=== PATIENT | male | born 1965 | race African-American/Black ===

== ENCOUNTER 2018-04-28 09:54 | Outpatient (CLI) | payer BC | END 2018-04-28 09:55 | disposition home or self-care (01) | LOC: BICRAD 09:54 | PROVIDERS: ATTEND Internal Medicine Medical Oncology | DX: D47.2 Monoclonal gammopathy (principal); I70.0 Atherosclerosis of aorta | CPT/HCPCS: 71046 ==

== ENCOUNTER 2018-05-11 16:24 | Inpatient (IN) | payer BC ==
[~2018-05-11 16:24] MED LIST: ISOVUE-370 76%-LOCM 1 ML ONE
[2018-05-11 16:59] LABS: Bilirubin Small (Negative); Blood, Urine Large (Negative); Clarity CLOUDY (Clear); Glucose, Urine (Dipstick) Negative (Negative); Leukocyte Trace (Negative); Nitrite Negative (Negative); Protein, Urine (Dipstick) 100 mg/dL (Neg-Trace); Specific Gravity, Urine 1.014 (1.002-1.036)
[2018-05-11 17:02] LABS: Pathc Cast-AUWi Flag 11.33 (0-2.49); Yeast-AUWi Flag 73.9 (0-25.0)
--- NOTE | 2018-05-11 17:07 | RAD ---
PORTABLE UPRIGHT FRONTAL CHEST RADIOGRAPH; 05/11/18 COMPARISON: None. HISTORY: Abdominal pain and flank pain with diarrhea. FINDINGS: There is no pneumothorax. There is focal opacity within the right lung base with partial obscuration of the right hemidiaphragm and the right heart border which suggests nonspecific right basilar consol idation/collapse. Small right pleural effusion suspected. Left lung appears clear. No left pleural fl uid. IMPRESSION: Focal opacity noted in the right lung base suggests a combination of nonspecific pleural and parenchy mal opacity. Findings may be related to infectious pneumonitis or aspiration. Followup to resolution advised. POS: [facility]
[2018-05-11 17:10] LABS: Bacteria/HPF Rare-Few HPF (None Seen)
[2018-05-11 17:11] LABS: Other Casts/LPF 4-6 COARSE GRAN LPF (0-3 Hyaline)
[2018-05-11 17:30] LABS: Hemoglobin 11.8 g/dL (14.0-18.0); Mean Corpuscular HGB CONC 32.8 g/dL (32.0-36.0); Mean Corpuscular Hemoglobin 31.1 pg (27.0-31.0); Mean Corpuscular Volume 95.1 fL (78.0-98.0); Platelet Count 109 thou/uL (130-400); Red Blood Cell (RBC) Count 3.78 mill/uL (4.70-6.10); White Blood Cell (WBC) Count 4.7 thou/uL (4.8-10.8)
[2018-05-11 17:46] LABS: Band 27 % (5-11); Dohle Bodies SLIGHT; Lymphocytes 10 % (21-51); MDiff Complete? YES; Metamyelocyte 1 % (0-0); Monocytes 1 % (0-10); Neutrophil 61 % (42-75); PLT Morphology Comment Appears Decreased; Polychromasia SLIGHT = 2-3 cells (100X) (0-2/hpf); Vacuoles SLIGHT
[2018-05-11 17:52] LABS: Troponin I Less than 0.010 ng/mL (< 0.028)
[2018-05-11 17:56] LABS: ALT (SGPT) 30 U/L (8-55); AST (SGOT) 87 U/L (5-34); Albumin 2.8 g/dL (3.5-5.0); Alkaline Phosphatase 47 U/L (40-150); Anion Gap 12 mmol/L (10-20); BUN (Urea Nitrogen) 35 mg/dL (8.4-25.7); Bilirubin, Total 2.2 mg/dL (0.2-1.2); Calc. Creatinine Clearance 0 mL/min (70-130); Calcium 7.6 mg/dL (7.8-10.44); Carbon Dioxide 14 mmol/L (22-29); Chloride 110 mmol/L (98-107); Estimated GFR-MDRD 50; Globulin 5.8 g/dL (2.4-3.5); Glucose 87 mg/dL (70-105); Potassium 3.9 mmol/L (3.5-5.1); Protein, Total 8.6 g/dL (6.0-8.3); Sodium 132 mmol/L (136-145)
[2018-05-11 18:05] LABS: CKMB 7.6 ng/mL (0-6.6)
--- NOTE | 2018-05-11 19:38 | ULT ---
ULTRASOUND ABDOMEN LIMITED: (RIGHT UPPER QUADRANT) 05/11/18 HISTORY: Right upper quadrant abdominal pain. FINDINGS: Gallbladder: Contains sludge. Wall thickness upper limits of normal, 3 mm. No sonographic Calero's si gn. No definite calculus identified. No significant gallbladder lumen distention. Common duct: 4 mm. Liver: Normal echogenicity. Pancreas: Nonspecific sonographic appearance. Right kidney: No hydronephrosis. IMPRESSION: gallbladder sludge and borderline gallbladder wall thickening, but no evidence of cholelithiasis. [employer] POS: [facility]
[2018-05-11] MEDS ORDERED: Azithromycin 500 MG VIAL ONE (19:46)
[2018-05-11] MEDS ORDERED: cefTRIAXone\\ROCEPHIN 1 GM VIAL ONE (19:46)
[2018-05-11] MEDS ORDERED: HYDROcodone/Acetaminophen 5/325 mg Tablet ONE (21:11)
--- NOTE | 2018-05-11 22:16 | CT ---
CT ABDOMEN WITH CONTRAST CT PELVIS WITH CONTRAST: DATE: 05/11/18 TIME: 7:30 p.m. HISTORY: 52-year-old male with right flank pain, right upper quadrant abdominal pain, and fever. COMPARISON: 05/30/17. FINDINGS: There is a new finding of a large, dense consolidation at the right lower lobe, representing pneumoni a. No pleural effusion. The left lung base is clear. Previously demonstrated right inguinal hernia wi th strangulation, has been repaired. There is currently no small bowel obstruction. Urinary bladder, bilateral kidneys, spleen, pancreas, appear unremarkable. Atherosclerotic changes of abdominal aorta and iliac arteries, without aneurysm. No pneumoperitoneum, ascites, or intra-abdominal abscess. Diffu sely low hepatic attenuation represents fatty liver. Bilateral adrenal glands are thickened suggestiv e of hyperplasia, similar to prior CT. There is poor contrast opacification of the organs and venous structures. There is modest contrast opacification of the abdominal aorta. IMPRESSION: 1. Right lower lobe pneumonia. 2. Hepatic steatosis. [employer] POS: [facility]
[2018-05-11] MEDS ORDERED: Ondansetron HCl/PF 4 MG/2 ML Vial IVP PRN (23:16)
[2018-05-11] MEDS ORDERED: Ondansetron ODT 4 MG TAB SL PRN (23:16)
[2018-05-11] MEDS ORDERED: Acetaminophen 325 MG TAB PO PRN ×2 (23:16→23:24)
[2018-05-11] MEDS ORDERED: Sodium Chloride 0.9% 1,000 ML IV SCH (23:30)
[2018-05-11] MEDS: Sodium Chloride 0.9% 1,000 ML IV SCH (23:52)
[2018-05-12] MEDS ORDERED: DOPamine 400 MG/D5W 250 ML 250 ML IVPB SCH (03:15)
[2018-05-12 03:27] VITALS: BMI 24.6
[2018-05-12] MEDS ORDERED: Norepinephrine 8 MG/250 ML BAG IVPB PRN (04:14)
[2018-05-12] MEDS: Sodium Chloride 0.9% 1,000 ML IV SCH ×2 (05:21→15:13)
[2018-05-12 07:04] LABS: Hemoglobin 11.3 g/dL (14.0-18.0); Mean Corpuscular HGB CONC 33.1 g/dL (32.0-36.0); Mean Corpuscular Hemoglobin 31.9 pg (27.0-31.0); Mean Corpuscular Volume 96.3 fL (78.0-98.0); Mean Platelet Volume 7.2 fL (7.4-10.4); RBC Distribution Width 12.1 % (11.5-14.5); Red Blood Cell (RBC) Count 3.55 mill/uL (4.70-6.10); White Blood Cell (WBC) Count 4.8 thou/uL (4.8-10.8)
[2018-05-12 07:09] LABS: Anion Gap 8 mmol/L (10-20); BUN (Urea Nitrogen) 25 mg/dL (8.4-25.7); Calc. Creatinine Clearance 82 mL/min (70-130); Calcium 8.2 mg/dL (7.8-10.44); Carbon Dioxide 19 mmol/L (22-29); Chloride 111 mmol/L (98-107); Estimated GFR-MDRD 84; Glucose 70 mg/dL (70-105); Potassium 3.3 mmol/L (3.5-5.1); Sodium 135 mmol/L (136-145)
--- NOTE | 2018-05-12 07:59 | HP ---
DATE OF ADMISSION: 05/11/2018 REASON FOR ADMISSION AND CHIEF COMPLAINT: Abdominal pain, cough, and right lower chest pain as well. HISTORY OF PRESENT ILLNESS: Mr. Gama is a 52-year-old -[place] male with past medical hi story of hypertension, started to having pain just started about 2-3 days ago. The pain is in the ri t upper quadrant area and also lower part of the right chest. Pain is sharp in nature and no fever , associated some coughing, coughing productive with yellow sputum, but no shortness of breath, no na usea, no vomiting. Because of worsening pain in the right upper quadrant, he decided to come to the hospital. The patient was evaluated in the ER and found to be very tachycardic and hypotensive with heart rate of around 120 and blood pressure 89/60. The patient also had low grade fever of 100.7 and found to have right lower lobe pneumonia. The patient received Rocephin and Zithromax and IV fluid boluses by EMS as well as the ER physician, totaling 3 liters. The patient is still hypotensive. He will be started on Levophed and being admitted for further evaluation and management. PAST MEDICAL HISTORY: 1. Hypotension. 2. 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 PAST SURGICAL HISTORY: Nothing significant. CURRENT MEDICATIONS: Amlodipine 2.5 mg daily. ALLERGIES: No known drug allergies. FAMILY HISTORY: Nothing of interest. SOCIAL HISTORY: The patient lives with family. He smokes one pack a day. Drinks alcohol occasional ly. No history of illicit drug abuse. REVIEW OF SYSTEMS: Cardiovascular: Has no chest pain, no shortness of breath. Respiratory: Has co ugh, fever. Gastrointestinal: Right upper quadrant pain. No nausea or vomiting. Central nervous s ystem: No headache, no dizziness. PHYSICAL EXAMINATION: GENERAL: The patient is alert, awake, oriented x3. VITAL SIGNS: Temperature 100.7, pulse initially 120, now 96, respirations 24, blood pressure of 85/6 0. HEENT: Head is normocephalic, atraumatic. Pupils equal and reactive to light. Nasopharynx is pink and moist. NECK: Supple. No JVD. LUNGS: Breath sounds diminished bilaterally. Percussion in the right base. HEART: S1, S2 regular. ABDOMEN: Soft, tenderness present in right upper quadrant area. No guarding, no rigidity. Bowel so unds present. RECTAL: Deferred. CENTRAL NERVOUS SYSTEM: No focal deficit. LABORATORY AND X-RAY FINDINGS: CBC shows WBC 4.7, hemoglobin 11.8, hematocrit 36, platelets 109. Me tabolic panel shows sodium 138, potassium 3.9, chloride 110, CO2 of 14, BUN 35, creatinine 1.7, gluco se 87, total bilirubin 2.2, AST 87, ALT 30. CPK is 2433, CK-MB 7.6. BNP is 239. Serum albumin 2.8, globulin 5.8. Urinalysis negative. Chest x-ray of the right lower lobe infiltrate, possible pneumo ismael. EKG shows sinus tachycardia with heart rate of 122, no acute ST-T wave changes seen. ASSESSMENT: 1. Pneumonia with sepsis with septic shock. 2. Hepatic steatosis. 3. Hypergammaglobulinemia. 4. History of hypertension. PLAN: 1. Vital signs q.4 hours. 2. Activity: As tolerated. 3. Allergies: No known drug allergies. 4. IV fluids with normal saline 100 mL per hour. 5. Rocephin 2 grams IV piggyback daily. 6. Zithromax 500 mg IV q.a.m. daily. 7. Diet: Regular. 8. Levophed infusion.
[2018-05-12 08:44] LABS: Band 36 % (5-11); Lymphocytes 12 % (21-51); MDiff Complete? YES; Monocytes 3 % (0-10); Neutrophil 49 % (42-75); Platelet Clumps MODERATE; Polychromasia SLIGHT = 2-3 cells (100X) (0-2/hpf); Reflex for Review?? NO; Rouleaux Formation MODERATE= 6-15 cells (100X) (None Seen); Small Platelets SLIGHT
[2018-05-12 08:57] LABS: Platelet Count 120 thou/uL (130-400)
[2018-05-12] MEDS ORDERED: Pantoprazole 40 MG VIAL IVP SCH (09:00)
[2018-05-12] MEDS: Enoxaparin Sodium 40 MG/0.4 ML SYRINGE SC SCH (10:08)
--- NOTE | 2018-05-12 13:07 | CON ---
DATE OF CONSULTATION: 05/12/2018 SERVICE: Pulmonary Medicine. REASON FOR CONSULTATION: ICU patient. HISTORY OF PRESENT ILLNESS: The patient is a 52-year-old -[place] male with past medical history significant for a 5-day history of pleuritic pain. It was sharp pain in his right side. It was worse whenever he would cough or take a deep breath. It really was in his associated with movement or exertion. Ultimately, he was found to have lower blood pressure. He presented to the emergency department for additional evaluation. He was also having some diarrhea for the past couple of days. He is having a productive cough of yellow sputum. PAST MEDICAL HISTORY: 1. Hypertension. 2. Hypergammaglobulinemia, possible. PAST SURGICAL HISTORY: None. ALLERGIES: No known drug allergies. MEDICATIONS: List of his inpatient medications were reviewed. Multiple updates were made. FAMILY HISTORY: Noncontributory. SOCIAL HISTORY: Negative for alcohol, tobacco or illicit drug use. He has no exposure to chemicals, dust asbestos or tuberculosis. REVIEW OF SYSTEMS: General, head, ears, eyes, nose, throat, cardiovascular, respiratory, GI, , musculoskeletal, neurologic and skin is negative except as mentioned in the HPI. PHYSICAL EXAMINATION: VITAL SIGNS: Currently afebrile. Temperature of 100.7 on presentation. He is running some low-grade temperatures of 99.8 still, pulse 103, blood pressure 91/ 71, respirations 32, saturation 95% on 3 liters nasal cannula. HEENT: Normocephalic, atraumatic. Sclerae are white, conjunctivae pink. Oral mucosa is moist and without lesions. LUNGS: Decent air entry. No prolonged expiratory phase or wheezing is appreciated. HEART: Normal rate and regular. ABDOMEN: Soft, nontender, nondistended. Bowel sounds are positive. MUSCULOSKELETAL: No cyanosis or clubbing. There is no pitting in the bilateral lower extremities. NEUROLOGIC: Grossly nonfocal. LABORATORY DATA: WBC 4.8, hemoglobin 11.3, platelets 120,000 and up trending. Neutrophil count is 49% and band count 36%. Potassium 3.3. Creatinine is down trending to 1.1, bicarb has improved to 19. Anion gap has gone away. Troponin is below assay limit of normal. CK 2433, BNP 239. Urinalysis has minimal abnormalities. IMAGIN. Chest x-ray demonstrates right lower lobe infiltrate. 2. Abdominal ultrasound demonstrates gallbladder sludge and borderline gallbladder wall thickening without evidence of cholelithiasis. 3. CT of the abdomen and pelvis demonstrates right lower lobe pneumonia. There is hepatic steatosis present. ASSESSMENT: 1. Acute hypoxic respiratory failure. 2. Community-acquired pneumonia. 3. Acute kidney injury - improving. 4. Thrombocytopenia, likely secondary to severe sepsis syndrome. 5. Severe sepsis. 6. Diarrhea and possible gastroenteritis. 7. Elevated CK. 8. Hypokalemia. PLAN: We will continue our antibiotics directed at community-acquired coverage. He is clearing his end-organ damage. Dopamine will be discontinued. He is not having any lightheadedness or dizziness. As such, we will start mobilizing him to the best of our ability. We will try to maintain his head of bed slightly elevated. Protonix will be interrupted. We will continue the IV fluids for the next 24 hours. He can be transitioned to the medical floor today. The CK will be repeated in the morning. Potassium will be replaced x2 doses today. 70 minutes have been devoted to this patient in various activities. I personally reviewed all imaging studies and laboratory data noted within this document. For fifty percent of this time, I was interacting with the patient at the bedside or coordinating care with the care team. For the remainder of the time I was immediately available to the patient in the hospital unit. [place]
[2018-05-12] MEDS: Potassium Chloride 20 MEQ TAB PO SCH ×2 (13:18→16:34)
[2018-05-12] MEDS: Acetaminophen 325 MG TAB PO PRN (17:18)
[2018-05-12] MEDS ORDERED: cefTRIAXone\\ROCEPHIN 2 GM in Sodium Chloride 0.9% 100 ML IVPB SCH (18:00)
[2018-05-12] MEDS ORDERED: Azithromycin 500 MG in Sodium Chloride 0.9% 250 ML 250 ML IVPB SCH (20:00)
[2018-05-13 04:51] LABS: Anion Gap 9 mmol/L (10-20); BUN (Urea Nitrogen) 15 mg/dL (8.4-25.7); CK (CPK) 1513 U/L (30-200); Calc. Creatinine Clearance 97 mL/min (70-130); Calcium 8.1 mg/dL (7.8-10.44); Carbon Dioxide 18 mmol/L (22-29); Chloride 114 mmol/L (98-107); Estimated GFR-MDRD Greater than 90; Glucose 72 mg/dL (70-105); Magnesium 1.9 mg/dL (1.6-2.6); Potassium 3.6 mmol/L (3.5-5.1); Sodium 137 mmol/L (136-145)
[2018-05-13 05:10] LABS: Band 19 % (5-11); Hemoglobin 10.2 g/dL (14.0-18.0); Lymphocytes 23 % (21-51); MDiff Complete? YES; Mean Corpuscular HGB CONC 32.9 g/dL (32.0-36.0); Mean Corpuscular Hemoglobin 31.4 pg (27.0-31.0); Mean Corpuscular Volume 95.4 fL (78.0-98.0); Mean Platelet Volume 7.7 fL (7.4-10.4); Monocytes 4 % (0-10); Neutrophil 54 % (42-75); PLT Morphology Comment Appears Decreased; Platelet Count 104 thou/uL (130-400); RBC Distribution Width 12.4 % (11.5-14.5); Red Blood Cell (RBC) Count 3.24 mill/uL (4.70-6.10); White Blood Cell (WBC) Count 6.7 thou/uL (4.8-10.8)
[2018-05-13] MEDS: Sodium Chloride 0.9% 1,000 ML IV SCH ×2 (05:40→08:03)
[2018-05-13] MEDS: Enoxaparin Sodium 40 MG/0.4 ML SYRINGE SC SCH (08:05)
[2018-05-13] MEDS ORDERED: Potassium Chloride 20 MEQ TAB PO SCH (11:30)
[2018-05-13] MEDS ORDERED: Cefdinir 300 MG CAP PO SCH (11:30)
--- NOTE | 2018-05-13 11:36 | PRG ---
DATE OF SERVICE: 05/13/2018 SERVICE: Pulmonary Medicine. INTERVAL HISTORY: The patient is doing fine from a cardiovascular and respiratory standpoint. He denies any current fevers, chills, nausea or vomiting. His energy is coming back. He has a little bit of shortness of breath, but otherwise, he is in his usual state of health. Today, I had a chance of screening for sleep apnea. He is strongly positive. He snores frequently. He wakes up feeling unrefreshed and frequently takes naps during the daytime, which are unscheduled. He wakes up and has nocturia x 2 or 3. PHYSICAL EXAMINATION: VITAL SIGNS: Afebrile, pulse 86, blood pressure 102/72, respirations 20, saturation 92% on room air. GENERAL: The patient is awake, alert, no apparent distress. LUNGS: Excellent air entry. Rhonchi are present. Dependent crackles are present in the right base. No prolonged expiratory phase or wheezing is appreciated. HEART: Normal rate and regular. ABDOMEN: Soft, nontender and nondistended. Bowel sounds are positive. MUSCULOSKELETAL: No cyanosis or clubbing. No pitting in the bilateral lower extremities. NEUROLOGIC: Grossly nonfocal. LABORATORY DATA: WBC 6.7, hemoglobin 10.2, platelets 104,000, band count has dropped dramatically to 19%. Basic metabolic profile is essentially unremarkable except for potassium of 3.6. Magnesium falls within the normal limits and CK is down trending to 1500. IMAGING DATA: Chest x-ray today demonstrates pleural parenchymal opacification of the right lower lung zone. An evolving pleural effusion cannot be excluded. It does not appeared to be quite that dense on presentation. Bedside ultrasound did not demonstrate a fluid collection that was amenable to thoracentesis. ASSESSMENT: 1. Acute hypoxic respiratory failure, resolved. 2. Community-acquired pneumonia, severe. 3. Severe sepsis, resolved. 4. Acute kidney injury, resolved. 5. Diarrhea, resolved. 6. Hypokalemia, improving. 7. Obstructive sleep apnea, suspected. PLAN: I will replace the patient's potassium today. We will convert his azithromycin and Rocephin over to p.o. Minimal pleural fluid is present, but too small to comfortably tap. Additionally, there is not way to get to it without crossing the lung. Through the day, we will work on mobilization efforts. [place]
--- NOTE | 2018-05-13 12:54 | RAD ---
CHEST 2 VIEWS: HISTORY: Pneumonia. COMPARISON: 05/11/18. FINDINGS: Cardiac silhouette remains partially obscured by infiltrate at the right base involving the right low er and middle lobes. Pulmonary vasculature is upper limits of normal. Some fluid is apparent within the major fissures. No evidence of pneumothorax. IMPRESSION: Interval increase in consolidation of the right base with slight interval increased right pleural flu id. POS: [facility]
[2018-05-13] MEDS: Cefdinir 300 MG CAP PO SCH (19:19)
[2018-05-13] MEDS: Acetaminophen 325 MG TAB PO PRN (20:15)
[2018-05-14 05:06] LABS: ALT (SGPT) 40 U/L (8-55); AST (SGOT) 82 U/L (5-34); Albumin 2.5 g/dL (3.5-5.0); Alkaline Phosphatase 59 U/L (40-150); Anion Gap 9 mmol/L (10-20); BUN (Urea Nitrogen) 9 mg/dL (8.4-25.7); Bilirubin, Total 1.2 mg/dL (0.2-1.2); Calc. Creatinine Clearance 112 mL/min (70-130); Calcium 8.2 mg/dL (7.8-10.44); Carbon Dioxide 21 mmol/L (22-29); Chloride 108 mmol/L (98-107); Estimated GFR-MDRD Greater than 90; Globulin 5.1 g/dL (2.4-3.5); Glucose 77 mg/dL (70-105); Potassium 3.2 mmol/L (3.5-5.1); Protein, Total 7.6 g/dL (6.0-8.3); Sodium 135 mmol/L (136-145)
[2018-05-14 05:09] LABS: Band 17 % (5-11); Hemoglobin 10.9 g/dL (14.0-18.0); Lymphocytes 14 % (21-51); MDiff Complete? YES; Mean Corpuscular HGB CONC 31.8 g/dL (32.0-36.0); Mean Corpuscular Hemoglobin 30.2 pg (27.0-31.0); Mean Corpuscular Volume 94.9 fL (78.0-98.0); Monocytes 9 % (0-10); Neutrophil 60 % (42-75); PLT Morphology Comment Appears Decreased; Platelet Count 110 thou/uL (130-400); RBC Distribution Width 12.6 % (11.5-14.5); Red Blood Cell (RBC) Count 3.61 mill/uL (4.70-6.10)
[2018-05-14] MEDS: Acetaminophen 325 MG TAB PO PRN ×2 (06:13→20:41)
[2018-05-14] MEDS: Cefdinir 300 MG CAP PO SCH ×2 (09:19→20:41)
[2018-05-14] MEDS: Azithromycin 250 MG TAB PO SCH (09:20)
--- NOTE | 2018-05-14 13:27 | EKG ---
Test Reason : ER Blood Pressure : / mmHG Vent. Rate : 122 BPM Atrial Rate : 122 BPM P-R Int : 124 ms QRS Dur : 076 ms QT Int : 318 ms P-R-T Axes : 065 031 033 degrees QTc Int : 453 ms Sinus tachycardia Low voltage QRS Borderline ECG Confirmed by LM CEDENO ([id number]), commissioning editor SILVIA CASTAÑEDA ([id number]) on 05/14/2018 1:27:20 PM Referred By: Confirmed By:LM CEDENO
--- NOTE | 2018-05-14 15:02 | PRG ---
DATE OF SERVICE: 05/14/2018 SUBJECTIVE: He said he is feeling better, less short of breath. His x-ray yesterday showed a right- sided effusion and infiltrate. OBJECTIVE: VITAL SIGNS: Sats are 92, temperature 99, blood pressure is 114/75. CHEST: Decreased breath sounds without any wheezing. CARDIAC: Normal S1, S2, no gallops. ABDOMEN: Soft, no masses. LABORATORY DATA: White count 7000. IMPRESSION: Right lung pneumonia, pleural effusion Omnicef. If effusion gets larger, he may n eed a thoracentesis.
[2018-05-14] MEDS ORDERED: Potassium Chloride 20 MEQ TAB PO SCH (16:45)
[2018-05-14] MEDS: Potassium Chloride 20 MEQ TAB PO SCH ×2 (19:24→23:40)
[2018-05-15] MEDS: Potassium Chloride 20 MEQ TAB PO SCH (03:52)
[2018-05-15 05:37] LABS: #Monocytes 0.7 thou/uL (0.11-0.59); #Neutrophils 4.1 thou/uL (1.40-6.50); %Basophils 0.9 % (0.0-1.0); %Eosinophils 0.2 % (0.0-10.0); %Lymphocytes 16.6 % (21.0-51.0); %Monocytes 12.1 % (0.0-10.0); %Neutrophils 70.3 % (42.0-75.0); Hemoglobin 11.3 g/dL (14.0-18.0); Mean Corpuscular HGB CONC 32.2 g/dL (32.0-36.0); Mean Corpuscular Hemoglobin 30.3 pg (27.0-31.0); Mean Corpuscular Volume 94.3 fL (78.0-98.0); Mean Platelet Volume 8.8 fL (7.4-10.4); Platelet Count 105 thou/uL (130-400); RBC Distribution Width 12.5 % (11.5-14.5); Red Blood Cell (RBC) Count 3.74 mill/uL (4.70-6.10); White Blood Cell (WBC) Count 5.8 thou/uL (4.8-10.8)
[2018-05-15 05:51] LABS: Anion Gap 10 mmol/L (10-20); BUN (Urea Nitrogen) 7 mg/dL (8.4-25.7); Calc. Creatinine Clearance 119 mL/min (70-130); Calcium 8.2 mg/dL (7.8-10.44); Carbon Dioxide 22 mmol/L (22-29); Chloride 105 mmol/L (98-107); Estimated GFR-MDRD Greater than 90; Glucose 68 mg/dL (70-105); Potassium 3.5 mmol/L (3.5-5.1); Sodium 133 mmol/L (136-145)
[2018-05-15] MEDS: Azithromycin 250 MG TAB PO SCH (08:21)
[2018-05-15] MEDS: Cefdinir 300 MG CAP PO SCH ×2 (08:21→20:01)
--- NOTE | 2018-05-15 13:15 | PRG ---
DATE OF SERVICE: 05/15/2018 SUBJECTIVE: He is doing better. Denies any coughing. OBJECTIVE: VITAL SIGNS: His sats are 93 on room air, pulse 87, temperature is low grade 99, blood pressure 180/ 77. CHEST: Decreased breath sounds without any wheezing. CARDIAC: Normal S1, S2, no gallops. ABDOMEN: Soft. LABORATORY DATA: White count 5000, H and H 11 and 35, platelet count is low 105. Electrolytes are n ormal. IMPRESSION: 1. Right lower lobe pneumonia, pleural effusion. 2. Thrombocytopenia. PLAN: antibiotics. Persistent fever. May require thoracentesis to rule out a parapneumonic e ffusion. We will follow.
[2018-05-15] MEDS ORDERED: Potassium Chloride 20 MEQ TAB PO SCH (17:45)
[2018-05-15] MEDS: Acetaminophen 325 MG TAB PO PRN (20:00)
[2018-05-16 04:34] LABS: #Lymphocytes 1.2 thou/uL (1.20-3.40); #Monocytes 0.9 thou/uL (0.11-0.59); %Basophils 0.7 % (0.0-1.0); %Eosinophils 0.4 % (0.0-10.0); %Lymphocytes 19.3 % (21.0-51.0); %Monocytes 14.8 % (0.0-10.0); %Neutrophils 64.8 % (42.0-75.0); Hemoglobin 11.6 g/dL (14.0-18.0); Mean Corpuscular HGB CONC 33.5 g/dL (32.0-36.0); Mean Corpuscular Hemoglobin 31.6 pg (27.0-31.0); Mean Corpuscular Volume 94.3 fL (78.0-98.0); Mean Platelet Volume 8.9 fL (7.4-10.4); Platelet Count 120 thou/uL (130-400); RBC Distribution Width 12.5 % (11.5-14.5); Red Blood Cell (RBC) Count 3.68 mill/uL (4.70-6.10); White Blood Cell (WBC) Count 6.2 thou/uL (4.8-10.8)
[2018-05-16 04:47] LABS: Anion Gap 9 mmol/L (10-20); BUN (Urea Nitrogen) 9 mg/dL (8.4-25.7); Calc. Creatinine Clearance 115 mL/min (70-130); Calcium 8.3 mg/dL (7.8-10.44); Carbon Dioxide 22 mmol/L (22-29); Chloride 106 mmol/L (98-107); Estimated GFR-MDRD Greater than 90; Glucose 75 mg/dL (70-105); Potassium 3.4 mmol/L (3.5-5.1); Sodium 134 mmol/L (136-145)
[2018-05-16] MEDS: Azithromycin 250 MG TAB PO SCH (08:10)
[2018-05-16] MEDS: Cefdinir 300 MG CAP PO SCH ×2 (08:10→19:51)
[2018-05-16] MEDS: Acetaminophen 325 MG TAB PO PRN (08:18)
[2018-05-16] MEDS ORDERED: predniSONE 20 MG TAB PO SCH (10:00)
--- NOTE | 2018-05-16 10:17 | PRG ---
DATE OF SERVICE: 05/16/2018 SERVICE: Pulmonary Medicine. INTERVAL HISTORY: The patient is doing great from a respiratory standpoint. He denies any current shortness of breath. He continues to have some pleuritic chest discomfort. Otherwise, there is no significant interval change to his condition. He denies any fevers or chills. He is continuing to have a little bit of bloody bowel movements. This being worked up by the primary service. PHYSICAL EXAMINATION: VITAL SIGNS: Afebrile, pulse 92, blood pressure 114/76, respirations 16, saturation 90% on room air. GENERAL: The patient is awake and alert, in no apparent distress. LUNGS: Decent air entry. There is no prolonged expiratory phase or wheezing appreciated. HEART: Normal rate, regular. ABDOMEN: Soft, nontender, nondistended. Bowel sounds are positive. MUSCULOSKELETAL: No cyanosis or clubbing. There is no pitting in the bilateral lower extremities. NEUROLOGIC: Grossly nonfocal. LABORATORY DATA: WBC 6.2, hemoglobin 11.6, platelets 120,000 and improving. Neutrophil count is within the normal limits. Basic metabolic profile is essentially unremarkable except for potassium of 3.4. IMAGING: Ultrasound from Wednesday demonstrated no significant collection of pleural fluid on the right. ASSESSMENT: 1. Acute hypoxic respiratory failure, resolved. 2. Community-acquired pneumonia, severe. 3. Severe sepsis, resolved. 4. Acute kidney injury, resolved. 5. Hypokalemia. 6. Obstructive sleep apnea, suspected. DISCUSSION AND PLAN: I will replace the patient's potassium again. I will also repeat a chest x-ray to make certain that there is no effusion evolving. If the chest x-ray appears stable today, he can be considered for transition out of the hospital as previously bedside ultrasound did not demonstrate any large pocket of fluid. He will need a repeat chest x-ray in the outpatient setting in 4-6 weeks. Antibiotics can be interrupted after total duration of 7 days. I will continue to follow if he remains in the hospital. [place]
[2018-05-16] MEDS: Potassium Chloride 20 MEQ TAB PO SCH ×2 (10:43→13:45)
--- NOTE | 2018-05-16 12:03 | RAD ---
PA AND LATERAL CHEST: History: Pneumonia. Comparison: 05-13-18 FINDINGS: The heart size is normal. The left lung is clear. Consolidation in the left lower lung with accompany ing pleural effusion demonstrate mild interval worsening. IMPRESSION: Mild interval worsening of right sided pneumonia since 05-13-18. POS: [facility]
[2018-05-16] MEDS ORDERED: ISOVUE-370 76%-LOCM 1 ML ONE (13:50)
--- NOTE | 2018-05-16 17:28 | CT ---
CT CHEST WITH IV CONTRAST: HISTORY: Pneumonia. Pleural effusion. FINDINGS: No mediastinal, hilar, or axillary mass or lymphadenopathy is seen. The thoracic aorta is well opaci fied without aneurysmal dissection. No pericardial or left pleural effusion is identified. There is moderate sized right pleural effusion with adjacent consolidation in the left lower lobe. No pneumo thoraces are seen. There is a 3 cm loculated air-fluid collection at the posteromedial aspect of the right lung base. There is a small focal patchy density in the posteromedial aspect of the left uppe r lobe. No osteolytic or osteoblastic lesions are seen. Upper abdominal tomograms demonstrate a con tracted gallbladder. IMPRESSION: 1. Moderate right pleural effusion with adjacent consolidation. 2. A 3 cm abscess in the right lower lobe. POS: [facility]
[2018-05-17 06:15] LABS: Iron 17 ug/dL (65-175); Iron Binding Capacity, Total 166 mcg/dL (261-462)
[2018-05-17] MEDS: Cefdinir 300 MG CAP PO SCH (07:45)
[2018-05-17] MEDS: predniSONE 20 MG TAB PO SCH (07:45)
[2018-05-17] MEDS ORDERED: Lidocaine 1% (PF) 30 ML VIAL SC SCH (08:45)
[2018-05-17 10:47] LABS: BF Color Yellow; Body Fluid Source THORACENTESIS FLD; Clarity Clear (Clear)
[2018-05-17 11:01] LABS: Pleural Fluid, Protein 5.6 g/dL
[2018-05-17 11:19] LABS: RBC Background Count 0.002; Tube # 1; WBC Background Count 0.01
[2018-05-17 11:20] LABS: WBC/NonHematic-Auto 753 /cumm
[2018-05-17 11:43] LABS: BF RBC Count - Manual 1168 /cumm
[2018-05-17 12:14] LABS: BF Segmented Neutrophils 71 %; Cell Count Non Hematic 24 %; Lymphocytes 5 %
[2018-05-17] MEDS ORDERED: Amoxicillin/Potassium Clav 875 MG TAB PO SCH (12:30)
--- NOTE | 2018-05-17 12:32 | PRG ---
DATE OF SERVICE: 05/17/2018 SERVICE: Pulmonary Medicine. INTERVAL HISTORY: The patient is doing fine from a respiratory standpoint. He is breathing comfortably. Otherwise, there has been no interval change to his condition. He ends up with a little bit of pleuritic chest discomfort. This is not getting much worse or better over the last couple of days. OBJECTIVE: VITAL SIGNS: Afebrile, pulse 89, blood pressure 133/84, respirations 18, saturation 90% on room air. GENERAL: The patient is awake, alert, no apparent distress. LUNGS: Decreased air entry at the right base. No prolonged expiratory phase or wheezing is appreciated. HEART: Normal rate, regular. ABDOMEN: Soft, nontender, nondistended. Bowel sounds are positive. MUSCULOSKELETAL: No cyanosis or clubbing. There is no pitting in the bilateral lower extremities. NEUROLOGIC: Grossly nonfocal. LABORATORY DATA: 1. Ferritin 588, iron 17, TIBC 166. Pleural fluid pH 7.0, total protein 5.6, LDH 705, glucose 82. There are 71% neutrophils in that space. Microbiology studies are currently pending. 2. Chest x-ray from yesterday demonstrates worsening right-sided pneumonia. 3. CT of the chest demonstrates a pleural effusion on the right. There is a 3 cm abscess in the right lower lobe. ASSESSMENT: 1. Community-acquired pneumonia, severe. 2. Complicated parapneumonic pleural effusion, possible empyema. 3. Pulmonary abscess, possible. 4. Obstructive sleep apnea, suspected. DISCUSSION AND PLAN: The patient has completed his course of antibiotics for community-acquired pneumonia. That being said, because of the new discovery of abscess, and parapneumonic effusion, we will put him on Augmentin. He will likely need a protracted course of this medication. A repeat CT of the chest will be performed. If there are loculations of fluid that left behind after my thoracentesis, Cardiothoracic Surgery consultation will be placed for decortication. Pulmonary Critical Care will continue to follow along. [place]
--- NOTE | 2018-05-17 12:41 | OP ---
DATE OF SERVICE: 05/17/2018 SERVICE: Pulmonary Medicine. PROCEDURE: Right-sided pleural drainage with catheter insertion under ultrasound guidance. CONSENT: The risks and benefits of this procedure were explained to the patient. All questions were answered and alternative options explained. STAFF PHYSICIAN: Lior Palma M.D. MEDICATIONS USED: Lidocaine 1% without epinephrine, total quantity 10 mL PREOPERATIVE DIAGNOSES: 1. Community-acquired pneumonia. 2. Pleural effusion. POSTPROCEDURE DIAGNOSES: 1. Community-acquired pneumonia. 2. Pleural effusion. DESCRIPTION OF PROCEDURE: A timeout was performed by the procedure team and patient. The patient wa s positively identified using name and date of . The procedure site was marked. Vital sign mon itoring was accomplished by noninvasive hemodynamic monitoring, pulse oximetry, and telemetry. In a seated position, the right posterior hemithorax was examined using ultrasound probe. The diaphragm a nd pleural fluid were easily identified. The skin was prepped and draped in sterile fashion and anes thetized with 1% lidocaine without epinephrine. A finder needle was inserted in the pleural space wi th return of clear dark yellow fluid. It was fairly viscous. A pleural drainage catheter was insert ed in the same location, a total quantity of 500 mL of pleural fluid was withdrawn by syringe pump te chnique. A sample was sent for analysis. Evacuation of fluid was terminated because the fluid stopp ed coming. At the end of the procedure, estimated pleural pressures, measured by manometry, was -24 cm of pleural fluid. The intact catheter was withdrawn and exhalation. A sterile dressing was appli ed. The patient had stable vitals throughout the entire procedure. ESTIMATED BLOOD LOSS: Less than 1 mL COMPLICATIONS: None.
--- NOTE | 2018-05-17 14:56 | CT ---
CT CHEST NONCONTRAST: HISTORY: Pleural effusion. Interval thoracentesis. Chest pain and dyspnea. COMPARISON: 05/17/18. FINDINGS: Right pleural fluid has decreased significantly since the prior study. No evidence of pneumothorax. Loculated collection of air and fluid at the posteromedial aspect of the right lung base is unchange d. Consolidation adjacent to the right pleural fluid has improved slightly. Small nodule at the posteromedial aspect of the left upper lobe abutting the pleura is stable. Lack of contrast limits evaluation for other abnormalities. IMPRESSION: Interval thoracentesis with significant decrease in right pleural fluid and improved aeration of the right lung base. Other findings are stable. POS: [facility]
[2018-05-17] MEDS: Amoxicillin/Potassium Clav 875 MG TAB PO SCH (20:06)
--- NOTE | 2018-05-18 00:11 | CON ---
GASTROENTEROLOGY CONSULTATION NOTE DATE OF CONSULTATION: 05/17/2018 CHIEF COMPLAINT: Bloody diarrhea. HISTORY OF PRESENT ILLNESS: Mr. Gama is a 52-year-old man who was admitted on 05/11/2018 with ri ght-sided chest and right upper quadrant pain associated with pneumonia and parapneumonic effusion. He presented with weakness and hypotension, tachycardia, and fever and was started on antibiotics for sepsis and pneumonia. He symptomatically has been improving. He underwent thoracentesis with impro vement in the pleural effusion. He also reports around the day that he came to the hospital. He als o started with bloody diarrhea. He is having 3 or 4 liquidy red bloody stools per day. He had no ab dominal pain or nausea or vomiting associated with that. Today his stools turned back to normal brow n-formed stool. He has had no prior colonoscopy. No prior history of GI bleeding. PAST MEDICAL HISTORY: Hypertension. PAST SURGICAL HISTORY: Right inguinal hernia repair. FAMILY HISTORY: Negative for GI malignancies. SOCIAL HISTORY: He smokes a pack a day, drinks 2 or 3 beers per night on the weekends. No drugs. ALLERGIES: No known drug allergies. MEDICATIONS: Prior to admission, amlodipine. CURRENT INPATIENT MEDICATIONS: Include prednisone and Augmentin. REVIEW OF SYSTEMS: Negative x10 systems reviewed except as stated in history of present illness. PHYSICAL EXAMINATION: VITAL SIGNS: Temperature 97.8, pulse 79, blood pressure 136/82. GENERAL: He is in no acute distress, alert and oriented x3. HEENT: Eyes have no scleral icterus. Oropharynx is clear without lesions. NECK: No cervical or supraclavicular lymphadenopathy. LUNGS: Clear to auscultation bilaterally. HEART: Regular rate and rhythm. ABDOMEN: Soft, nontender, nondistended. Bowel sounds are present. EXTREMITIES: No lower extremity edema. LABORATORY: White blood cell count 6.2, hemoglobin 11.6, platelets 120,000. Creatinine 0.79, biliru bin 1.2, AST 82, ALT 40, alkaline phosphatase 59, albumin 2.5, globulin 5.1. IMPRESSION: 1. Bloody diarrhea. Given that this started at the same time, he was presenting with sepsis from pn eumonia. This could be ischemic colitis from the hypotension. He also works at [employer] and possibility of infectious colitis is also possible. His bloody diarrhea went on for 5 days and then resolved. He has had no abdominal pain really to suggest ischemic colitis. 2. Abnormal liver function tests. His AST was elevated on presentation. His bilirubin was elevated at 2.2 as well, but does return to normal. The ALT was normal at 30, alkaline phosphatase 47. Give n persistent thrombocytopenia and low albumin, he could have some underlying chronic liver disease. Acute hepatitis is also possible from ischemia or alcohol. There is really no significant alcohol hi story to suggest this. His AST was only mildly elevated, which is not really consistent with acute i schemia. AST is greater than ALT, which can be seen with cirrhosis along with thrombocytopenia and l ow albumin. RECOMMENDATIONS: 1. We will plan colonoscopy as an outpatient in 2-4 weeks after resolution of his lung infection and recovery from that. 2. Check viral hepatitis screen. Of note, he did have ultrasound of the liver which appeared normal on 05/11/2018. CT scan showed evidence of hepatic steatosis. 3. Recommend alcohol cessation. 4. We will need to follow trend of the liver tests as an outpatient as well.
--- NOTE | 2018-05-18 02:30 | CON ---
DATE OF CONSULTATION: 05/17/2018 DIAGNOSIS: Right empyema. REASON FOR CONSULTATION: Evaluate patient for right thoracoscopic decortication. HISTORY OF PRESENT ILLNESS: Mr. Gama is a very pleasant 52-year-old gentleman who was admitted w ith pneumonia and parapneumonic effusion. He has undergone a thoracentesis, which revealed clear flu id. A pH was 7.0. On follow up CT scan, he still has multiple loculations of fluid present in his r ight chest. He has been managed on Augmentin. He has had no positive cultures at this time. His ite blood cell count has been normal throughout his hospital stay. I have been asked to see him to p erform thoracoscopy to drain the remainder of the fluid and break up all the loculations to allow for clearance. PAST MEDICAL HISTORY: Hypertension. PAST SURGICAL HISTORY: Inguinal hernia repair. MEDICATIONS AT HOME: None. ALLERGIES: None. SOCIAL HISTORY: He smokes a pack of cigarettes a day. He occasionally drinks alcohol. He denies an y other drugs. He lives with family. REVIEW OF SYSTEMS: Ten point review of systems is performed and is negative except as above. PHYSICAL EXAMINATION: GENERAL: Well-developed, well-nourished male resting comfortably in bed. VITAL SIGNS: Height 5 feet 9 inches, weight 167 pounds, BSA is 1.92. Temperature is 97.8, pulse is 79 and regular, blood pressure is 136/82. HEENT: Sclerae nonicteric. Pupils equal, round bilaterally. NECK: Supple, without bruit. LUNGS: Clear bilaterally. He has some diminished breath sounds in the base of the right lung. HEART: Rhythm is regular. ABDOMEN: Soft and nontender. EXTREMITIES: No edema. LABORATORY AND x-rays have been reviewed. ASSESSMENT AND PLAN: Right-sided multiloculated fluid collection, possibility for an empyema. I hav e discussed thoracoscopy and thoracotomy with the patient. We will start with a thoracoscopy and hop efully be able to decorticate his right lung. Risks, benefits, and options have been outlined.
[2018-05-18 05:34] LABS: #Lymphocytes 1.4 thou/uL (1.20-3.40); #Monocytes 0.6 thou/uL (0.11-0.59); #Neutrophils 4.4 thou/uL (1.40-6.50); %Basophils 0.1 % (0.0-1.0); %Eosinophils 0.3 % (0.0-10.0); %Lymphocytes 21.3 % (21.0-51.0); %Monocytes 9.8 % (0.0-10.0); %Neutrophils 68.5 % (42.0-75.0); Hemoglobin 11.1 g/dL (14.0-18.0); Mean Corpuscular HGB CONC 32.8 g/dL (32.0-36.0); Mean Corpuscular Hemoglobin 31.1 pg (27.0-31.0); Mean Corpuscular Volume 94.8 fL (78.0-98.0); Mean Platelet Volume 8.2 fL (7.4-10.4); Platelet Count 187 thou/uL (130-400); RBC Distribution Width 12.5 % (11.5-14.5); Red Blood Cell (RBC) Count 3.56 mill/uL (4.70-6.10); White Blood Cell (WBC) Count 6.5 thou/uL (4.8-10.8)
[2018-05-18 05:54] LABS: Anion Gap 10 mmol/L (10-20); BUN (Urea Nitrogen) 13 mg/dL (8.4-25.7); Calc. Creatinine Clearance 126 mL/min (70-130); Calcium 8.5 mg/dL (7.8-10.44); Carbon Dioxide 21 mmol/L (22-29); Chloride 109 mmol/L (98-107); Estimated GFR-MDRD Greater than 90; Glucose 82 mg/dL (70-105); Potassium 3.8 mmol/L (3.5-5.1); Sodium 136 mmol/L (136-145)
[2018-05-18 06:18] LABS: HBSAB Concentration 0.05 mIU/mL; HBSAg Index 0.18 S/CO (0-0.99); Hep A IgM AB Non-Reactive (NonReactive); Hep A IgM S/CO 0.14 S/CO (0-0.79); Hep B Surf AB Non-Reactive (NonReactive); Hep B Surf Ag Non-Reactive S/CO (NonReactive)
[2018-05-18] MEDS ORDERED: Fentanyl 250 MCG/5 ML VIAL ONE (07:41)
[2018-05-18] MEDS ORDERED: Famotidine/PF 20 mg/2ml Vial ONE (07:41)
[2018-05-18] MEDS ORDERED: Fentanyl 100 MCG/2 ML VIAL ONE ×3 (07:41→10:46)
[2018-05-18 07:53] LABS: Hep B Core Total Ab NonReactive (NonReactive); Hep B Core Total Index 0.65 S/CO (0-0.79)
[2018-05-18 07:54] LABS: Hep C Index 12.55 S/CO (0-0.79)
[2018-05-18 07:56] LABS: Hep C IgG Ab Reflex HepC Qnt (NonReactive)
[2018-05-18] MEDS ORDERED: Bupivacaine HCl 0.5%/Epinephrine 1:200,000/PF 30 ml Vial ONE (08:42)
[2018-05-18] MEDS: Amoxicillin/Potassium Clav 875 MG TAB PO SCH ×2 (09:20→20:04)
[2018-05-18] MEDS: predniSONE 20 MG TAB PO SCH (09:20)
[2018-05-18] MEDS ORDERED: Promethazine HCl 25 MG/ML VIAL IM PRN (09:34)
[2018-05-18] MEDS ORDERED: Meperidine HCl/PF 25 MG/ML VIAL SLOW IVP PRN (09:34)
[2018-05-18] MEDS ORDERED: Ondansetron HCl/PF 4 MG/2 ML Vial IVP PRN (09:34)
[2018-05-18] MEDS ORDERED: Promethazine HCl 25 MG/ML VIAL SLOW IVP PRN (09:34)
--- NOTE | 2018-05-18 10:05 | OP ---
DATE OF PROCEDURE: 05/18/2018 PREOPERATIVE DIAGNOSIS: Right empyema. POSTOPERATIVE DIAGNOSIS: Right empyema. PROCEDURE PERFORMED: Right thoracoscopy with total pulmonary decortication. SURGEON: Marciano Bolden M.D. ANESTHESIA: General endotracheal. ESTIMATED BLOOD LOSS: 150 mL DRAINS: 24-Kinyarwanda chest tubes x2. PROCEDURE IN DETAIL: After consent was obtained, the patient was brought to the operating room, and placed supine position on the operating room table. Appropriate anesthetic monitor was placed and ge neral endotracheal anesthesia induced. The patient was placed in the left lateral decubitus position . Joints were appropriately padded. SCDs were used. Right chest wall was prepped and draped in usu al sterile fashion. Three separate skin incisions were made for port access. Thoracoscope was inser carolyn and blunt dissection used to take down all the adhesions in the lateral chest wall. Once adhesio ns were down, the gelatinous material was all removed with ring forceps. Chest was copiously irrigat ed to clear the remainder of the gelatinous material. The 24-Kinyarwanda chest tubes were placed x2 throu gh the anterior port site. These were secured with silk suture. Lung was reexpanded. Thoracoscope and port was removed. Wounds were injected with 0.25% Marcaine with epinephrine. Wounds were then c losed in layers and Dermabond applied to the skin. The patient was awakened, extubated, and transfer red to recovery room in stable condition.
--- NOTE | 2018-05-18 10:36 | RAD ---
PORTABLE CHEST 1 VIEW: Date: 05/18/18 Time: 0923 hours HISTORY: Pleural effusion. FINDINGS/IMPRESSION: Comparison made with exam of 05/16/18. Interval placement of two right-sided chest tubes is noted since the previous exam with interval impr ovement in the right-sided pleural effusion. A residual small right pleural effusion is present with patchy infiltrates in the right lower lung. No significant pneumothorax is seen. The heart size is no rmal. Mild infiltrates have developed in the left lung base. . POS: [facility]
[2018-05-18] MEDS ORDERED: HYDROcodone/Acetaminophen 5/325 mg Tablet PO PRN (11:31)
[2018-05-18] MEDS ORDERED: Fentanyl 100 MCG/2 ML VIAL SLOW IVP PRN (11:31)
[2018-05-18] MEDS: Ketorolac Tromethamine 30 MG/ML VIAL IVP SCH ×3 (11:53→23:30)
[2018-05-18] MEDS: HYDROcodone/Acetaminophen 5/325 mg Tablet PO PRN (11:54)
[2018-05-18] MEDS ORDERED: PHENYLEPHRINE-NS 100 MCG/ML 10 ML SYRINGE ONE (12:40)
[2018-05-18] MEDS ORDERED: Glycopyrrolate 0.2 MG/ML 5 ML SYRINGE ONE (12:40)
[2018-05-18] MEDS ORDERED: PROPOFOL 200 MG/20 ML VIAL ONE (12:40)
[2018-05-18] MEDS ORDERED: Lidocaine 1% PF 5 ML VIAL ONE (12:40)
[2018-05-18] MEDS ORDERED: Dexamethasone 20 MG/5 ML VIAL ONE (12:40)
[2018-05-18] MEDS ORDERED: Ketorolac Tromethamine 30 MG/ML VIAL ONE (12:40)
[2018-05-18] MEDS ORDERED: Ondansetron HCl/PF 4 MG/2 ML Vial ONE (12:40)
--- NOTE | 2018-05-18 13:20 | ADD-CON ---
ADDENDUM I will sign off for now. Please call if GI can be of assistance.
--- NOTE | 2018-05-18 18:34 | PRG ---
DATE OF SERVICE: 05/18/2018 SERVICE: Pulmonary Medicine. INTERVAL HISTORY: The patient is postop day 0 from his thoracotomy and decortication. He is doing v mónica well after this procedure. He denies any chest pain, nausea, vomiting, fevers or chills. Otherw ise, there has been no interval change to his condition. PHYSICAL EXAMINATION: VITAL SIGNS: Afebrile, pulse 68, blood pressure 96/62, respirations 14, saturation 98% on room air. GENERAL: The patient is awake, alert, no apparent distress. LUNGS: Decent air entry. There is no prolonged expiratory phase or wheezing. There is chest tube i n the right chest. HEART: Normal rate, regular. ABDOMEN: Soft, nontender, and nondistended. Bowel sounds are positive. MUSCULOSKELETAL: No cyanosis or clubbing. No pitting in the bilateral lower extremities. NEUROLOGIC: Grossly nonfocal. LABORATORY DATA: WBC 6.5, hemoglobin 11.1, platelets 187,000 and rebounding beautifully. Band count is low. Basic metabolic profile is essentially unremarkable. Ferritin 588. Pleural fluid is consis tent with neutrophilic exudate. Body fluid culture remains negative to date. IMAGING DATA: Chest x-ray demonstrates right-sided chest tube is in good position with interval impr ovement in pleural parenchymal disease. ASSESSMENT: 1. Community-acquired pneumonia. 2. Complicated parapneumonic pleural effusion versus empyema. 3. Pulmonary abscess, possible. 4. Obstructive sleep apnea, suspected. DISCUSSION AND PLAN: The patient is doing absolutely wonderful in the perioperative period. We will leave him in the hospital until chest tube comes out. At that point, he will be stable for discharg e from the hospital on p.o. Augmentin, which he is going to continue for the next 6 weeks until we re peat a CT scan in 4-6 weeks in the outpatient setting. Ultimately, I would like for him to see me in clinic in 2 weeks with a preclinic 2-view chest x-ray. Pulmonary will continue to follow.
[2018-05-19] MEDS: Ketorolac Tromethamine 30 MG/ML VIAL IVP SCH ×4 (04:56→23:29)
--- NOTE | 2018-05-19 07:42 | RAD ---
CHEST 1 VIEW: HISTORY: Dyspnea. Chest tubes. Followup. COMPARISON: 05/18/18. FINDINGS: Cardiac silhouette is magnified by projection. Pulmonary vasculature upper limits of normal. Parenc hymal opacity at the right base is stable. Right thoracostomy tubes are unchanged in position. No e vidence of significant pneumothorax. Parenchymal opacity at the left base is less pronounced than on the previous exam. Mediastinum remains midline. IMPRESSION: 1. Improved aeration left lung base. 2. Right thoracostomy tubes and other findings are otherwise stable. POS: [facility]
[2018-05-19] MEDS: Amoxicillin/Potassium Clav 875 MG TAB PO SCH ×2 (08:48→19:57)
--- NOTE | 2018-05-19 10:31 | PRG ---
DATE OF SERVICE: 05/19/2018 SERVICE: Pulmonary Medicine. INTERVAL HISTORY: The patient is doing fine from a respiratory standpoint. He denies any current chest pain, nausea, vomiting, fevers or chills. Otherwise, there has been no interval change to his condition. PHYSICAL EXAMINATION: VITAL SIGNS: Afebrile, pulse 64, blood pressure 113/75, respirations 20, saturation 97% on room air. GENERAL: The patient is awake, alert, no apparent distress. LUNGS: Excellent air entry. There is no prolonged expiratory phase, wheezing, rhonchi or crackles. HEART: Normal rate, regular. ABDOMEN: Soft, nontender, nondistended. Bowel sounds are positive. MUSCULOSKELETAL: No cyanosis or clubbing. No pitting in the bilateral lower extremities. NEUROLOGIC: Grossly nonfocal. LABORATORY DATA: Body fluid culture remains negative to date. IMAGING: Chest x-ray demonstrates right lower lobe infiltrate. Two thoracostomy drains are in good position in the right lung. ASSESSMENT: 1. Community-acquired pneumonia, severe. 2. Complicated parapneumonic pleural effusion. 3. Pulmonary abscess, possible. 4. Obstructive sleep apnea, suspected. DISCUSSION AND PLAN: The patient will remain in the hospital until the chest tube is removed after his serosanguineous fluid starts to drop off a little bit. Pulmonary and Critical Care will continue to follow along while he remains in this location. Ultimately, we will need to repeat a chest x-ray in 2 weeks in the outpatient setting as well as a CT scan in likely 6 weeks. He will be on Augmentin for that entire period of time. [place]
[2018-05-19] MEDS: HYDROcodone/Acetaminophen 5/325 mg Tablet PO PRN (10:39)
[2018-05-19] MEDS: Acetaminophen 325 MG TAB PO PRN (23:29)
[2018-05-20] MEDS: Ketorolac Tromethamine 30 MG/ML VIAL IVP SCH (05:44)
[2018-05-20] MEDS: Amoxicillin/Potassium Clav 875 MG TAB PO SCH (08:43)
--- NOTE | 2018-05-20 10:56 | PRG ---
DATE OF SERVICE: 05/20/2018 SUBJECTIVE: Mr. Gama is feeling better. No further diarrhea. OBJECTIVE: ABDOMEN: Soft, nontender and nondistended. IMPRESSION: 1. Bloody diarrhea, currently resolved. This may have been mild ischemic colitis. Colonoscopy is r ecommended as an outpatient for screening and followup of this episode. He is recovering from his pn eumonia now. We will plan on doing this in around 4 weeks. 2. Abnormal liver function tests. His hepatitis C antibody was positive. We will await the RNA lev el and follow up in GI Clinic regarding this. RECOMMENDATIONS: My office will contact Mr. Gama and to schedule followup appointment. The rikki ent is informed of this and we will plan on seeing him in the office in 2-4 weeks.
--- NOTE | 2018-05-20 11:01 | PRG ---
DATE OF SERVICE: 05/20/2018 SERVICE: Pulmonary Medicine INTERVAL HISTORY: The patient is doing great from a respiratory standpoint, He denies any current shortness of breath or chest discomfort. Chest tube was removed this morning. He has no specific complaints of fevers, chills, nausea or vomiting. PHYSICAL EXAMINATION: VITAL SIGNS: Afebrile, pulse 64, blood pressure 115/75, respirations 24, saturation 97% on room air. GENERAL: The patient is awake and alert, in no apparent distress. LUNGS: Excellent air entry. There is no prolonged expiratory phase or wheezing. HEART: Normal rate, regular. ABDOMEN: Soft and nontender, nondistended. Bowel sounds are positive. MUSCULOSKELETAL: No cyanosis or clubbing. No pitting in the bilateral lower extremities. NEUROLOGIC: Grossly nonfocal. LABORATORY: All culture results remain negative to date. Cytology from the thoracentesis was negative for any evidence of malignancy. ASSESSMENT: 1. Community-acquired pneumonia, severe. 2. Complicated parapneumonic pleural effusion, status post decortication. 3. Pulmonary abscess, possible. 4. Obstructive sleep apnea, suspected. 5. Hepatitis C. DISCUSSION AND PLAN: From a lung standpoint, the patient can likely be discharged from the hospital with Augmentin. This is assuming Surgery signs off on the transition home. I will see him in 2-4 weeks in the outpatient setting with a repeat chest x-ray. He will need to remain on Augmentin 875 mg p.o. twice daily for at least the next 6 weeks. My plan is to repeat a CT scan to make certain that this small collection of fluid has resolved. In the outpatient setting, we will consider sending him for a sleep apnea evaluation. [place]
[2018-05-20 19:06] VITALS: BP 130/87; TEMP 98.3
[2018-05-21 11:11] LABS: HCV I.Units 19000000 IU/mL (.); HCV I.Units log10 7.279 (.); Hep C PCR-Quant See Final Results IU/mL (.)
== END 2018-05-20 19:00 | disposition home or self-care (01) | DRG 853 ==
LOC: ERS 16:24 → IMCU/EMU 20:03 → CCU 05-12 04:21 → T4-B 05-12 13:59 → SURG B 05-18 11:24
PROVIDERS: ADMIT Internal Medicine; ATTEND Internal Medicine
PROC: 0W993ZZ Drainage of Right Pleural Cavity, Percutaneous Approach (ICD-10-PCS; 2018-05-17)
PROC: 0BNK4ZZ Release Right Lung, Percutaneous Endoscopic Approach (ICD-10-PCS; principal; 2018-05-18)
DX: A41.9 Sepsis, unspecified organism (principal); R65.21 Severe sepsis with septic shock; J18.9 Pneumonia, unspecified organism; J96.01 Acute respiratory failure with hypoxia; J86.9 Pyothorax without fistula; N17.9 Acute kidney failure, unspecified; J91.8 Pleural effusion in other conditions classified elsewhere; K92.1 Melena; K76.0 Fatty (change of) liver, not elsewhere classified; D89.2 Hypergammaglobulinemia, unspecified; I10 Essential (primary) hypertension; K52.9 Noninfective gastroenteritis and colitis, unspecified; E87.6 Hypokalemia; D69.6 Thrombocytopenia, unspecified; G47.33 Obstructive sleep apnea (adult) (pediatric); B19.20 Unspecified viral hepatitis C without hepatic coma; F17.210 Nicotine dependence, cigarettes, uncomplicated
CPT/HCPCS: 36415; 36416; 71045; 71046; 71250; 71260; 74177; 76705; 80048; 80053; 81003; 81015; 82274; 82550; 82553; 82728; 82945; 83540; 83550; 83605; 83615; 83735; 83880; 83986; 84132; 84157; 84484; 85025; 85060; 86704; 86706; 86708; 86709; 86803; 87070; 87116; 87205; 87206; 87340; 87449; 87522; 88112; 88305; 89051; 90471; 90732; 93005; 94760; 96365; 96366; 96375; 99406; A4216; C9113; G0009; J0456; J0670; J0696; J1100; J1265; J1650; J1885; J2001; J2405; J2704; J3010; J7050; J7506; S0028

== ENCOUNTER 2018-06-08 13:54 | Outpatient (CLI) | payer BC ==
--- NOTE | 2018-06-08 14:18 | RAD ---
CHEST 2 VIEWS: HISTORY: Dyspnea. COMPARISON: Chest radiograph 05/19/18. FINDINGS: There is overlying right pleural effusion. There are linear opacities right lower lobe. The left lung is relatively clear. No pneumothorax. IMPRESSION: Small to moderate right-side layering pleural effusion. POS: [facility]
== END 2018-06-08 13:55 | disposition home or self-care (01) ==
LOC: RAD 13:54
PROVIDERS: ATTEND Thoracic Surgery (Cardiothoracic Vascular Surgery)
DX: D47.2 Monoclonal gammopathy (principal); J90 Pleural effusion, not elsewhere classified
CPT/HCPCS: 71046

== ENCOUNTER 2018-06-20 11:10 | Outpatient (CLI) | payer BC | END 2018-06-20 11:11 | disposition home or self-care (01) | LOC: BICRAD 11:10 | PROVIDERS: ATTEND Internal Medicine Infectious Disease | DX: J90 Pleural effusion, not elsewhere classified (principal); R91.8 Other nonspecific abnormal finding of lung field | CPT/HCPCS: 71046 ==

== ENCOUNTER 2018-06-24 11:07 | Outpatient (CLI) | payer BC ==
--- NOTE | 2018-06-24 12:36 | RAD ---
PA AND LATERAL CHEST X-RAY: 06/24/2018 HISTORY: Dyspnea. COMPARISON: 06/08/2018 FINDINGS: There is a small right pleural effusion with associated atelectasis. However, pleural effusion is sl ightly smaller in size, compared to the prior exam. The left lung remains clear. The cardiac silhou ette and pulmonary vasculature are within normal limits. No other interval change. IMPRESSION: Slight interval decrease in small right pleural effusion with linear densities at the left lung base, likely related to atelectasis, which is also improved. POS: [facility]
== END 2018-06-24 11:08 | disposition home or self-care (01) ==
LOC: RAD 11:07
PROVIDERS: ATTEND Internal Medicine
DX: R06.00 Dyspnea, unspecified (principal); J90 Pleural effusion, not elsewhere classified; J98.4 Other disorders of lung
CPT/HCPCS: 71046

== ENCOUNTER 2018-12-07 09:23 | Outpatient (CLI) | payer BC ==
--- NOTE | 2018-12-07 12:26 | ULT ---
ULTRASOUND ABDOMEN LIMITED: (RIGHT UPPER QUADRANT) DATE: 12/07/18 HISTORY: 53-year-old male with right upper quadrant abdominal pain, hepatitis C, and HIV. FINDINGS: The gallbladder has normal wall thickness and has no evidence of gallstones. There is a small amount of sludge in the gallbladder lumen. There is tenderness over the gallbladder region. No pericholecyst ic fluid. The hepatic echogenicity is normal. The right kidney has normal echogenicity and has no hyd ronephrosis. The pancreas is visualized, although ultrasound is relatively insensitive for pancreatic pathology compared to CT and MRI. There is no biliary dilation. The common duct caliber is 3 mm. IMPRESSION: 1. Gallbladder sludge. 2. No evidence of acute cholecystitis or cholelithiasis. jn [] POS: [facility]
== END 2018-12-07 09:24 | disposition home or self-care (01) ==
LOC: ULT 09:23
PROVIDERS: ATTEND Physician Assistant Medical
DX: B20 Human immunodeficiency virus [HIV] disease (principal); B18.2 Chronic viral hepatitis C; R10.11 Right upper quadrant pain
CPT/HCPCS: 76705